=== PATIENT | male | born 1995 | race Caucasian/White ===

== ENCOUNTER 2017-08-31 09:38 | Outpatient (CLI) | payer OTHER ==
[~2017-08-31 09:38] MED LIST: GADOBUTROL 10 MMOL/10 ML VIAL ONE
[2017-08-31] MEDS ORDERED: GADOBUTROL 10 MMOL/10 ML VIAL IVP ONE (12:07)
--- NOTE | 2017-08-31 14:45 | MRI Report ---
Procedure Date: 08/31/2017 Accession Number: [id number] / [id number] Procedure: MRI - Brain W/WO CPT Code: FULL RESULT: EXAM: MRI BRAIN WITHOUT AND WITH CONTRAST EXAM DATE: 08/31/2017 11:03 AM. CLINICAL HISTORY: 22-year-old male, homonymous bilateral field defects. Evaluate for mass COMPARISON: None. TECHNIQUE: Multiplanar, multisequence T1-weighted and fluid-sensitive MR sequences of the brain were performed. Sequences optimized for routine evaluation. Other: None. IV Contrast: 10 mL Gadavist . FINDINGS: Brain Volume: Normal for age. Parenchyma: No acute hemorrhage, mass, or infarct. No white matter lesions identified. No abnormal enhancement. No parenchymal foci of susceptibility artifact. Ventricles/Cisterns: No hydrocephalus. No abnormal extra-axial fluid collection or hemorrhage. Orbits: Symmetric and unremarkable. Sella Turcica: The pituitary gland, cavernous sinuses, suprasellar cistern and optic chiasm are unremarkable. IAC: Symmetric and unremarkable. Vasculature: Normal signal flow void is seen in the major arterial structures at the skull base. The dural sinuses are patent and enhance normally. Sinuses: Mucous retention cyst/polyp left maxillary sinus. Moderate mucosal thickening right frontal sinus. The remaining paranasal sinuses are clear. Bones: No focal pathologic appearing marrow signal changes. Other: None. IMPRESSION: 1. Unremarkable MRI examination of the brain without and with contrast. No evidence of intracranial mass. No MRI evidence of acute intracranial abnormality. Specifically, no evidence of acute or subacute infarct, acute intracranial hemorrhage, mass, midline shift, or hydrocephalus. No white matter lesions. No abnormal enhancement. 2. Mucous retention cyst/polyp left maxillary sinus. Moderate mucosal thickening right frontal sinus. The remaining paranasal sinuses are clear. RADIA
== END 2017-08-31 09:39 | disposition home or self-care (01) ==
LOC: DI 09:38
PROVIDERS: ATTEND Radiology Diagnostic Radiology
DX: H53.469 Homonymous bilateral field defects, unspecified side (principal); J34.1 Cyst and mucocele of nose and nasal sinus
CPT/HCPCS: 70553; A9585

== ENCOUNTER 2018-05-30 01:26 | Emergency (ER) | payer OTHER ==
[2018-05-30] MEDS ORDERED: NAPROXEN 250 MG TABLET PO STA (03:16)
[2018-05-30] MEDS ORDERED: LORazepam 1 MG TABLET PO STA (03:16)
--- NOTE | 2018-05-30 03:35 | ED Physician Documentation ---
PD HPI DYSPNEA - Stated complaint Stated Complaint: CP - Chief complaint Chief Complaint: Cardiac - History obtained from History obtained from: Patient, Family - History of Present Illness Timing - onset: How many hours ago (1) Timing - onset during: Sleep (He states he awoke from sleep from a nightmare and felt very anxious with heart racing, short of breath, anxiety. He states he developed some tingling in his fingers and face associated with the trouble breathing and breathing fast. He states he is not having nightmares almost nightly this past week and most nights for the past 4 weeks. He noted the onset of these a couple weeks after starting a new antidepressant medicine. He had had some troubles getting to sleep prior to that but had not had any nightmares like this until after the medicine.He states the medication was to treat depression as well and he states he has not really felt much improvement from that.) Timing - details: Intermittant (has had the nightmares often. Takes med at bedtime. Was taking AM initially and felt tired/lightheaded during say so changed it to PM.) Inciting event(s): No: URI Worsened by: No: Exertion, Laying flat Associated symptoms: Other (related to medication). No: Cough, Hemoptysis, Palpitations Review of Systems Constitutional: denies: Fever Nose: denies: Rhinorrhea / runny nose, Congestion Throat: denies: Sore throat Cardiac: reports: Palpitations. denies: Chest pain / pressure Respiratory: denies: Dyspnea, Cough GI: denies: Abdominal Pain, Nausea, Vomiting Neurologic: denies: Altered mental status, Headache Psychiatric: reports: Depressed. denies: Suicidal, Homicidal PD PAST MEDICAL HISTORY - Past Medical History Past Medical History: Yes Psych: Depression, Anxiety - Past Surgical History Past Surgical History: Yes - Present Medications Home Medications: Ambulatory Orders Medication Instructions Recorded Confirmed Citalopram Hydrobromide [Celexa] 20 mg PO DAILY 05/30/18 05/30/18 - Allergies Allergies/Adverse Reactions: Allergies Allergy/AdvReac Type Severity Reaction Status Date / Time No Known Drug Allergies Allergy Verified 05/30/18 01:40 - Social History Does the pt smoke?: No Smoking Status: Never smoker Does the pt drink ETOH?: Yes Does the pt have substance abuse?: No - Immunizations Immunizations are current?: Yes - POLST Patient has POLST: No PD ED PE NORMAL - Vitals Vital signs reviewed: Yes - General General: Alert and oriented X 3, Well developed/nourished - HEENT HEENT: PERRL, EOMI, Moist mucous membranes, Pharynx benign - Neck Neck: Supple, no meningeal sign, No adenopathy, Thyroid normal - Cardiac Cardiac: RRR, No murmur - Respiratory Respiratory: Clear bilaterally - Derm Derm: Normal color - Extremities Extremities: No deformity, No tenderness to palpate, Normal ROM s pain, No edema, No calf tenderness / cord - Neuro Neuro: Alert and oriented X 3, No motor deficit, Normal speech Results - Vitals Vitals: Vital Signs - 24 hr 05/30/18 05/30/18 01:37 03:40 Temperature 36.5 C 36.1 C L Heart Rate 63 62 Respiratory 20 16 Rate Blood Pressure 135/83 H 135/92 H O2 Saturation 97 96 Oxygen O2 Source Room air - EKG (time done) 01:34 Rate: Rate (enter#) (65) Rhythm: NSR [place]: Normal Intervals: Normal NC QRS: Normal Ischemia: Normal ST segments. No: ST elevation c/w ischemia, ST depression PD MEDICAL DECISION MAKING - ED course Complexity details: considered differential (The timing of onset of his problems with nightmares and difficulty sleeping relate soon after starting the antidepressant medicine. He states he gave it time to see if it would improve has had been instructed. However he feels it is getting worse this past week. He is due to see his provider this coming Monday. He was concerned about the feeling of shortness of breath with the waking up from the nightmare tonight. It sounds like it was a panic attack with hyperventilation. His EKG is normal.), d/w patient Departure - Departure Disposition: Home, Self Care Clinical Impression: Medication side effects, Anxiety reaction Condition: Stable Record reviewed to determine appropriate education?: Yes Instructions: ED Panic Attack Follow-Up: CHAD WEST MD [Primary Care Provider] - Comments: Decrease your Celexa down to 10 mg daily until follow-up on Monday. You could take it during the day to minimize the nighttime side effects. Use Benadryl 25 mg at night to help with sleep instead. Follow-up Monday as planned at which point presumably they will continue tapering off the Celexa and try a different medicine. Discharge Date/Time: 05/30/18 03:41
[2018-05-30 03:41] VITALS: BP 135/92
== END 2018-05-30 03:41 | disposition home or self-care (01) ==
LOC: ED 01:26
DX: F41.9 Anxiety disorder, unspecified (principal); T43.205A Adverse effect of unspecified antidepressants, initial encounter
CPT/HCPCS: 93005; 99283; A9270; J8499

== ENCOUNTER 2018-10-31 20:22 | Emergency (ER) | payer OTHER ==
[2018-10-31 20:33] VITALS: BP 175/96
[2018-10-31] MEDS ORDERED: ZOLPIDEM 5 MG TABLET PO STA (21:03)
--- NOTE | 2018-10-31 21:05 | ED Physician Documentation ---
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 Here because he could not get a ref[place] on [facility]. No acute complaints.) Review of Systems Constitutional: denies: Fever, Chills Respiratory: denies: Dyspnea, Cough GI: denies: Abdominal Pain, Abdominal Swelling PD PAST MEDICAL HISTORY - Past Medical History Past Medical History: Yes Psych: Depression, Anxiety Other Past Medical History: insomnia - Past Surgical History Past Surgical History: Yes - Present Medications Home Medications: Ambulatory Orders Medication Instructions Recorded Confirmed Citalopram Hydrobromide [Celexa] 40 mg PO DAILY 05/30/18 05/30/18 Zolpidem Tartrate [Ambien] 10 mg PO QPM 10/31/18 10/31/18 Zolpidem Tartrate [Ambien] 10 mg PO QPM PRN #5 tablet 10/31/18 - Allergies Allergies/Adverse Reactions: Allergies Allergy/AdvReac Type Severity Reaction Status Date / Time No Known Drug Allergies Allergy Verified 05/30/18 01:40 - Social History Does the pt smoke?: No Smoking Status: Never smoker Does the pt drink ETOH?: Yes Does the pt have substance abuse?: No - Immunizations Immunizations are current?: Yes - POLST Patient has POLST: No PD ED PE NORMAL - Vitals Vital signs reviewed: Yes - General General: Alert and oriented X 3, No acute distress - HEENT HEENT: PERRL, EOMI - Neuro Neuro: Alert and oriented X 3, 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 Departure - Departure Disposition: 01 Home, Self Care Clinical Impression: Insomnia Qualifiers: Insomnia type: primary Qualified Code(s): F51.01 - Primary insomnia Condition: Good Record reviewed to determine appropriate education?: Yes Instructions: ED Insomnia Prescriptions: Zolpidem Tartrate [Ambien] 10 mg PO QPM PRN #5 tablet PRN Reason: Insomnia Comments: As discussed [place]. This is not a medication we generally refill out of the emergency department. Your blood pressure was elevated today on check into the emergency department. This does not mean that you have hypertension, it is a common phenomenon to come to the emergency department and have elevated blood pressure. I recommend that you see your primary care physician within the week to have it rechecked when you are feeling better.
== END 2018-10-31 21:16 | disposition home or self-care (01) ==
LOC: ED 20:22
DX: Z76.0 Encounter for issue of repeat prescription (principal); F51.01 Primary insomnia; R03.0 Elevated blood-pressure reading, without diagnosis of hypertension
CPT/HCPCS: 99282; 99283; A9270